=== PATIENT | female | born 1960 | race African-American/Black ===

== ENCOUNTER 2021-10-09 12:35 | Outpatient (REF) | payer MEDICARE, MEDICAID, SELFPAY ==
[2021-10-09 13:27] LABS: COVID-19 Test Negative (Negative)
== END 2021-10-09 12:36 | disposition home or self-care (01) ==
LOC: HO.LAB 12:35
PROVIDERS: Visit Provider Internal Medicine
DX: Z20.822 Contact with and (suspected) exposure to COVID-19 (principal)
CPT/HCPCS: 36415; 87635; C9803